=== PATIENT | female | born 1990 | race Caucasian/White ===

== ENCOUNTER 2018-04-03 11:03 | Emergency (ER) | payer OTHER ==
[2018-04-03 11:09] VITALS: BP 129/78
[2018-04-03] MEDS ORDERED: DEXAMETHASONE SOD PHOS INJ 10 MG/1 ML VIAL IM ONE (11:27)
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
== END 2018-04-03 11:43 | disposition home or self-care (01) ==
LOC: ER 11:03
DX: M25.512 Pain in left shoulder (principal)
CPT/HCPCS: 99283; 96372; J1100